=== PATIENT | female | born 1945 | race Hispanic/Latino ===

== ENCOUNTER 2020-11-04 00:44 | Inpatient (IN) | payer MEDICARE ==
[2020-11-04] MEDS ORDERED: cefTRIAXone/NS 1 GM/50 ML 1 GM/50 ML BAG IV ONE (00:58)
[2020-11-04] MEDS ORDERED: AZITHROMYCIN/NS 500 MG/250 ML 500 MG/250 ML BAG IV ONE (00:58)
[2020-11-04] MEDS ORDERED: dexAMETHasone 20 MG/5 ML VIAL IV ONE (00:58)
[2020-11-04] MEDS ORDERED: SODIUM CHLORIDE 0.9% 1000 ML IV SOLN IV ONE (01:05)
--- NOTE | 2020-11-04 01:11 | Emergency Department Report ---
ED Syncope HPI - General Chief Complaint: Syncope Stated Complaint: AMS Time Seen by Provider: 11/04/20 00:50 Source: patient, family Exam Limitations: no limitations - History of Present Illness Initial Comments: Chief complaint: HPI: This is a 75-year-old female with history of hypertension, coronary disease, hyperlipidemia, hypothyroidism, ventricular tachycardia carotid artery stenosis who presents with lethargy decreased level of consciousness. Patient was found lethargic barely responsive by EMS. Blood pressure was 70/36. Patient received 600 mL normal saline in route. I spoke to patient's upon his arrival to emergency department. Over the last few days she has been weak and fatigued. Patient gives similar history. Today she needed assistance going to the bathroom because she was so weak. Every time he would lift her she was slumped down. EMS also noted that she would become less responsive upon standing. Patient states that she has had headache fever chills shortness of breath cough nausea over the last several days. Several friends were recently diagnosed with COVID-19 infection. She was in contact close contact with these friends. She is not vaccinated against COVID-19. She was evaluated at [facility] (formerly [facility]) today. She has had decreased appetite. She took her blood pressure medication today. Timing/Prior Episodes: multiple episodes today Precipitating Factors: Positive: other (Standing, has had fatigue) Loss of Consciousness: brief (seconds) Current Symptoms: other (Generally weak) - Related Data Allergies/Adverse Reactions: Allergies codeine Allergy (Verified 03/30/13 11:21) Hives Home Medications: Ambulatory Orders Aspirin [Aspirin BABY CHEW TAB] 81 mg PO DAILY 03/30/13 Clopidogrel [Plavix] 75 mg PO QDAY 03/30/13 Famotidine [Pepcid] 10 mg PO BID PRN 03/30/13 Levothyroxine [Synthroid] 100 mcg PO QAM 03/30/13 Metoprolol [Lopressor TAB] 50 mg PO BID 03/30/13 Rosuvastatin (Nf) [Crestor] 5 mg PO QHS 03/30/13 ED Review of Systems ROS: Stated complaint: AMS Other details as noted in HPI Comment: All other systems reviewed and negative Constitutional: chills, fever, malaise Respiratory: cough, shortness of breath Cardiovascular: denies: chest pain Gastrointestinal: nausea. denies: abdominal pain Musculoskeletal: myalgia Neurological: headache ED Past Medical Hx - Past Medical History Previous Medical History?: Yes Hx Hypertension: Yes (2003) Hx Heart Attack/AMI: Yes Hx Seizures: Yes (as a child) Hx Asthma: Yes Additional medical history: Carotid artery stenosis - Surgical History Past Surgical History?: Yes Hx Coronary Stent: Yes Additional Surgical History: C section x 3. hysterectomy. ganglion cyst. Coronary artery stents. Carotid endarterectomy bilaterally - Social History Smoking Status: Never Smoker (Smoked 40 years ago remotely) Substance Use Type: None - Medications Home Medications: Home Medications Medication Instructions Recorded Confirmed Last Taken Type Aspirin [Aspirin BABY CHEW TAB] 81 mg PO DAILY 03/30/13 03/30/13 03/29/13 History Clopidogrel [Plavix] 75 mg PO QDAY 03/30/13 03/30/13 03/29/13 History Famotidine [Pepcid] 10 mg PO BID PRN 03/30/13 03/30/13 Unknown History Levothyroxine [Synthroid] 100 mcg PO QAM 03/30/13 03/30/13 03/29/13 History Metoprolol [Lopressor TAB] 50 mg PO BID 03/30/13 03/30/13 Unknown History Rosuvastatin (Nf) [Crestor] 5 mg PO QHS 03/30/13 03/30/13 03/29/13 History ED Physical Exam - General Limitations: No Limitations General appearance: alert, lethargic, other (Appears pale frail GCS 15) - Head Head exam: Present: atraumatic, normocephalic - Eye Eye exam: Present: normal appearance - ENT ENT exam: Present: mucous membranes dry - Neck Neck exam: Present: normal inspection, full ROM. Absent: tenderness, meningismus - Respiratory Respiratory exam: Present: normal lung sounds bilaterally. Absent: respiratory distress, wheezes, rales, rhonchi - Cardiovascular Cardiovascular Exam: Present: regular rate, normal rhythm, normal heart sounds. Absent: systolic murmur, diastolic murmur, rubs, gallop - GI/Abdominal GI/Abdominal exam: Present: soft, normal bowel sounds. Absent: distended, tenderness, guarding, rebound - Extremities Exam Extremities exam: Present: normal inspection - Neurological Exam Neurological exam: Present: alert, oriented X3 - Psychiatric Psychiatric exam: Present: normal affect, normal mood - Skin Skin exam: Present: warm, dry, intact, pallor ED Course Vital Signs 11/04/20 11/04/20 11/04/20 01:00 01:05 01:46 Temperature 98.6 F Pulse Rate 65 57 L Respiratory 14 14 21 Rate Blood Pressure 82/35 Blood Pressure 104/37 [Right] O2 Sat by Pulse 98 98 97 Oximetry 11/04/20 11/04/20 11/04/20 02:00 02:16 02:30 Temperature Pulse Rate 62 56 L 57 L Respiratory 25 H 22 20 Rate Blood Pressure 90/41 90/41 94/41 Blood Pressure [Right] O2 Sat by Pulse 100 100 100 Oximetry 11/04/20 11/04/20 11/04/20 02:46 03:16 03:30 Temperature Pulse Rate 57 L 67 72 Respiratory 24 29 H 19 Rate Blood Pressure 94/41 103/43 103/43 Blood Pressure [Right] O2 Sat by Pulse 100 100 100 Oximetry 11/04/20 04:16 Temperature Pulse Rate 66 Respiratory 25 H Rate Blood Pressure 61/38 Blood Pressure [Right] O2 Sat by Pulse 100 Oximetry - Reevaluation(s) Reevaluation #1: 11/04/20 04:16 Repeat blood pressure 101/50 ED Medical Decision Making - Lab Data Result diagrams: 11/04/20 01:17 11/04/20 01:17 Laboratory Results - last 24 hr 11/04/20 11/04/20 11/04/20 01:17 01:17 01:17 WBC 3.8 L RBC 4.08 Hgb 11.7 Hct 36.1 MCV 88 MCH 29 MCHC 33 RDW 15.9 H Plt Count 191 Lymph % (Auto) 20.5 [place] % (Auto) 8.7 H Eos % (Auto) 0.5 Baso % (Auto) 0.6 Lymph # (Auto) 0.8 L [place] # (Auto) 0.3 Eos # (Auto) 0.0 Baso # (Auto) 0.0 Seg Neutrophils % 69.7 Seg Neutrophils # 2.6 D-Dimer Sodium 138 Potassium 4.1 Chloride 102.9 Carbon Dioxide 27 Anion Gap 12 BUN 13 Creatinine 1.0 Estimated GFR 54 BUN/Creatinine Ratio 13 Glucose 133 H Lactic Acid 1.40 Calcium 8.2 L Ferritin Total Bilirubin 0.20 AST 32 ALT 20 Alkaline Phosphatase 68 Lactate Dehydrogenase 164 Troponin T < 0.010 C-Reactive Protein 0.50 Total Protein 6.1 L Albumin 3.5 L Albumin/Globulin Ratio 1.3 11/04/20 11/04/20 01:17 01:17 WBC RBC Hgb Hct MCV MCH MCHC RDW Plt Count Lymph % (Auto) [place] % (Auto) Eos % (Auto) Baso % (Auto) Lymph # (Auto) [place] # (Auto) Eos # (Auto) Baso # (Auto) Seg Neutrophils % Seg Neutrophils # D-Dimer 260.08 H Sodium Potassium Chloride Carbon Dioxide Anion Gap BUN Creatinine Estimated GFR BUN/Creatinine Ratio Glucose Lactic Acid Calcium Ferritin 76.2 Total Bilirubin AST ALT Alkaline Phosphatase Lactate Dehydrogenase Troponin T C-Reactive Protein Total Protein Albumin Albumin/Globulin Ratio - EKG Data -: EKG Interpreted by Me EKG shows normal: sinus rhythm, axis, QRS complexes Rate: normal - EKG Data Interpretation: nonspecific ST-T wave micheal 11/04/20 02:05 EKG obtained 0156 EKG interpreted by me Rate 60 bpm normal axis normal intervals poor R wave progression anterior leads diffuse T wave flattening - Radiology Data Radiology results: report reviewed Patient Name: ANTON MCKEON Gender: Female Date of : 1945 Referring Provider: STACIE BARRON Organization: [facility] Accession Number: [id number] Requested Date: November 04, 2020 00:57 Report Status: Final Requested Procedure: 1 Procedure Description: XR chest 1V ap Modality: XR Findings Reporting MD: Ranjeet Hardy Dictation Time: November 04, 2020 00:19 Pack Out Operator: Not available In Service Educator Date: CHEST 1 VIEW 11/04/2020 12:54 AM INDICATION / CLINICAL INFORMATION: hypotension cough. COMPARISON: None available. FINDINGS: SUPPORT DEVICES: None. HEART / MEDIASTINUM: Mild cardiomegaly LUNGS / PLEURA: Mild increased interstitial prominence appear bronchial cuffing No pneumothorax. Signer Name: Ranjeet Hardy MD Signed: 11/04/2020 12:19 AM Workstation Name: [id number] Patient Name: ANTON MCKEON Gender: Female Date of : 1945 Referring Provider: STACIE BARRON Organization: [facility] Accession Number: [id number] Requested Date: November 04, 2020 03:43 Report Status: Final Requested Procedure: 1 Procedure Description: CT angio chest Modality: CT Findings Reporting MD: Ranjeet Hardy Dictation Time: November 04, 2020 02:55 Pack Out Operator: Not available In Service Educator Date: CTA CHEST WITH CONTRAST INDICATION / CLINICAL INFORMATION: Syncope suspected COVID-19. TECHNIQUE: Axial CT images were obtained through the chest after injection of IV contrast. 3 plane MIP and/or 3D reconstructions were produced. All CT scans at this location are performed using CT dose reduction for ALARA by means of automated exposure control. COMPARISON: None available. FINDINGS: The pulmonary arteries are patent without filling defect or evidence for PTE. Heart and aorta appear normal. Coronary artery disease is identified. Small hiatal hernia with thickening of the distal esophagus. The liver is enlarged with fatty infiltration. Mild hazy densities and groundglass opacities are seen in bilateral lungs. Small nodule seen within the right lung anteriorly measuring 3 to 4 mm. Few additional small nodular densities are seen in the right lung on image 43 IMPRESSION: 1. No CT evidence for pulmonary embolism. 2. Mild hazy opacities are seen in bilateral lungs with some groundglass densities. Findings could represent inflammatory change however infection/viral pneumonia could have this appearance. 3. Small pulmonary nodules within the right lung. INCIDENTAL PULMONARY NODULE RECOMMENDATION RECOMMENDATION: Solid Nodule size <6 mm -- Single or Multiple - Low Risk Patient: No routine follow-up - High Risk Patient: Optional CT at 12 months Note These recommendations do not apply to lung cancer screening, patients with immunosuppression, or patients with known primary cancer. - Medical Decision Making 1. Suspected COVID-19: Patient had symptoms stereotypical for coronavirus infection. Chest radiograph and CT of the chest both reveal findings of atypical pneumonia. Patient received IV dexamethasone, IV ceftriaxone and IV azithromycin. 2. Orthostatic hypotension, syncope: Suspect dehydration while on antihypertensive therapy. Hypotension resolved with IV fluid bolus, Pulmonary embolism ruled out no indication of arrhythmia or ACS at this time 3. Incidental lung nodule finding on CT: Will need outpatient follow-up for lung cancer screening I spoke with [facility] physician Dr. Conti who approved admission to this hospital. Patient is admitted to hospital service with remote telemetry. Critical Care Time: Yes Critical care time in (mins) excluding proc time.: 40 Critical care attestation.: If time is entered above; I have spent that time in minutes in the direct care of this critically ill patient, excluding procedure time. 40 minutes of critical care time excluding procedures were used in the care of the patient. After listening to EMS report, nurse seam steamer informs me that patient would arrive with likely unstable vitals hypotension. I came immediately to the bedside upon patient's arrival. I obtained history from EMS at the bedside. I discussed treatment plan with the nursing team members. I spoke with per phone and in person. I reviewed electronic record. I kept the family members informed. Patient required multiple interventions and reassessments. ED Disposition Clinical Impression: Suspected COVID-19 virus infection, Multifocal pneumonia, Orthostatic hypotension, Dehydration, Syncope due to orthostatic hypotension Disposition: ADMITTED INPATIENT Is pt being admited?: Yes Does the pt Need Aspirin: No Condition: Fair Instructions: Bacterial Pneumonia (ED), Syncope (ED) Referrals: [facility] [Other] - 3-5 Days
--- NOTE | 2020-11-04 01:23 | XRay Report ---
CHEST 1 VIEW 11/04/2020 12:54 AM INDICATION / CLINICAL INFORMATION: hypotension cough. COMPARISON: None available. FINDINGS: SUPPORT DEVICES: None. HEART / MEDIASTINUM: Mild cardiomegaly LUNGS / PLEURA: Mild increased interstitial prominence appear bronchial cuffing No pneumothorax. Signer Name: Ranjeet Hardy MD Signed: 11/04/2020 1:19 AM Workstation Name: [id number]
[2020-11-04] MEDS ORDERED: ONDANSETRON 4 MG/2 ML INJ ONE (01:25)
[2020-11-04] MEDS ORDERED: ONDANSETRON 4 MG/2 ML INJ IV ONE (01:26)
[2020-11-04 01:46] LABS: Basophils % (Auto) 0.6 % (0.0-1.8); Eosinophils % (Auto) 0.5 % (0.0-4.3); Hematocrit 36.1 % (30.3-42.9); Hemoglobin 11.7 gm/dl (10.1-14.3); Lymphocytes # (Auto) 0.8 K/mm3 (1.2-5.4); Lymphocytes % (Auto) 20.5 % (13.4-35.0); Mean Corpuscular HGB Conc 33 % (30-34); Mean Corpuscular Volume 88 fl (79-97); Monocytes # (Auto) 0.3 K/mm3 (0.0-0.8); Monocytes % (Auto) 8.7 % (0.0-7.3); Platelet Count 191 K/mm3 (140-440); Red Blood Count 4.08 M/mm3 (3.65-5.03); Red Cell Distribution Width 15.9 % (13.2-15.2)
[2020-11-04 01:56] LABS: Alanine Aminotransferase 20 units/L (7-56); Albumin 3.5 g/dL (3.9-5); BUN/Creatinine Ratio 13; Blood Urea Nitrogen 13 mg/dL (7-17); Calcium 8.2 mg/dL (8.4-10.2); Hemolysis Index 3
--- NOTE | 2020-11-04 04:00 | Cat Scan Report ---
CTA CHEST WITH CONTRAST INDICATION / CLINICAL INFORMATION: Syncope suspected COVID-19. TECHNIQUE: Axial CT images were obtained through the chest after injection of IV contrast. 3 plane WI P and/or 3D reconstructions were produced. All CT scans at this location are performed using CT dose reduction for ALARA by means of automated exposure control. COMPARISON: None available. FINDINGS: The pulmonary arteries are patent without filling defect or evidence for PTE. Heart and aorta appear normal. Coronary artery disease is identified. Small hiatal hernia with thickening of the distal esop hagus. The liver is enlarged with fatty infiltration. Mild hazy densities and groundglass opacities are seen in bilateral lungs. Small nodule seen within t he right lung anteriorly measuring 3 to 4 mm. Few additional small nodular densities are seen in the right lung on image 43 IMPRESSION: 1. No CT evidence for pulmonary embolism. 2. Mild hazy opacities are seen in bilateral lungs with some groundglass densities. Findings could re present inflammatory change however infection/viral pneumonia could have this appearance. 3. Small pulmonary nodules within the right lung. INCIDENTAL PULMONARY NODULE RECOMMENDATION RECOMMENDATION: Solid Nodule size <6 mm -- Single or Multiple - Low Risk Patient: No routine follow-up - High Risk Patient: Optional CT at 12 months Note These recommendations do not apply to lung cancer screening, patients with immunosuppression, o r patients with known primary cancer. Note Newly detected indeterminate nodule in persons 35 years of age or older. Persons under the age of 35 should not receive follow-up unless there is a known primary cancer. Note Perifissural Nodule is a fissure-attached/subpleural, homogeneous, solid nodule that has smooth margins and an oval, lentiform, or triangular shape. They represent about 20% of nodules detected in lung cancer screening, are invariably benign, and do not require follow-up. Nodules 10 mm or larger (or those with suspicious features) will continue to be managed based on the size criteria. Low Risk Patient = minimal or absent history of smoking and of other known risk factors. High Risk Patient = history of smoking or of other known risk factors. Nodule dimensions are average of long and short axes, rounded to the nearest millimeter. Based on 2017 Fleischner Society Guidelines found in Radiology 2017 284:228-243. https://doi.org/10.1148/radiol.9112669930 https://www.ncbi.nlm.nih.gov/pmc/articles/QLX8548240/ Signer Name: Ranjeet Hardy MD Signed: 11/04/2020 3:55 AM Workstation Name: [id number]
[2020-11-04] MEDS ORDERED: MORPHINE 4 MG/1 ML INJ IV PRN (05:43)
[2020-11-04] MEDS ORDERED: MAGNESIUM HYDROXIDE (MOM) ORAL LIQD UDC PO PRN (05:43)
[2020-11-04] MEDS ORDERED: ACETAMINOPHEN 325 MG TAB PO PRN (05:43)
[2020-11-04] MEDS ORDERED: MORPHINE 2 MG/1 ML INJ IV PRN (05:43)
[2020-11-04] MEDS ORDERED: ONDANSETRON 4 MG/2 ML INJ IV PRN (05:43)
[2020-11-04] MEDS ORDERED: SODIUM CHLORIDE 0.9% 1000 ML 1,000 ML IV SCH (05:45)
--- NOTE | 2020-11-04 06:00 | History and Physical Report ---
History of Present Illness Date of examination: 11/04/20 Date of admission: 11/04/2020 Chief complaint: Syncope History of present illness: 75-year-old female with known history of hypertension, coronary artery disease, hyperlipidemia, hypothyroidism and history of ventricular tachycardia brought into the emergency room today via EMS for decreased level of responsiveness. Blood pressure upon initial evaluation by EMS was 77 this systolic in the 40s in the diastolic. Patient was given some IV fluid with significant improvement in blood pressure. Patient has been feeling weak and fatigued over the past few weeks and has been needing help ambulating and doing her ADLs. Patient states that she has had headache, fever and chills, nausea, loss of appetite, abdominal pain and shortness of breath over the past few days. She denies any recent travel however she has been in contact with a friend who was diagnosed with COVID-19. Patient has not had COVID-19 vaccination. Work-up in the emergency room today, CT angiogram of the chest reveals:1. No CT evidence for pulmonary embolism. 2. Mild hazy opacities are seen in bilateral lungs with some groundglass densities. Findings could represent inflammatory change however infection/viral pneumonia could have this appearance. 3. Small pulmonary nodules within the right lung. INCIDENTAL PULMONARY NODULE RECOMMENDATION Past History Past Medical History: acute CA, hypertension, seizures (In childhood), other (Asthma, carotid artery stenoses) Past Surgical History: , hysterectomy, PTCA, Other (Ganglion cyst removal, carotid endarterectomy) Social history: no significant social history Family history: no significant family history Medications and Allergies Allergies Allergy/AdvReac Type Severity Reaction Status Date / Time codeine Allergy Hives Verified 03/30/13 11:21 Home Medications Medication Instructions Recorded Confirmed Last Taken Type Aspirin [Aspirin BABY CHEW TAB] 81 mg PO DAILY 03/30/13 03/30/13 03/29/13 History Clopidogrel [Plavix] 75 mg PO QDAY 03/30/13 03/30/13 03/29/13 History Famotidine [Pepcid] 10 mg PO BID PRN 03/30/13 03/30/13 Unknown History Levothyroxine [Synthroid] 100 mcg PO QAM 03/30/13 03/30/13 03/29/13 History Metoprolol [Lopressor TAB] 50 mg PO BID 02/07/14 02/07/14 Unknown History Rosuvastatin (Nf) [Crestor] 5 mg PO QHS 03/30/13 03/30/13 03/29/13 History Active Meds: Active Medications Acetaminophen (Acetaminophen 325 Mg Tab) 650 mg PO Q4H PRN PRN Reason: Pain MILD(1-3)/Fever >100.5/MILNER Sodium Chloride (Nacl 0.9% 1000 Ml) 1,000 mls @ 75 mls/hr IV DIRECT MARTA Ceftriaxone Sodium (Rocephin/Ns 2 Gm/100 Ml) 2 gm in 100 mls @ 200 mls/hr IV Q24H MARTA; Protocol Azithromycin (Zithromax/Ns) 500 mg in 250 mls @ 250 mls/hr IV Q24H MARTA; Protocol Magnesium Hydroxide (Magnesium Hydroxide (Mom) Oral Liqd Udc) 30 ml PO Q4H PRN PRN Reason: Constipation Morphine Sulfate (Morphine 2 Mg/1 Ml Inj) 2 mg IV Q4H PRN PRN Reason: Pain, Moderate (4-6) Morphine Sulfate (Morphine 4 Mg/1 Ml Inj) 4 mg IV Q4H PRN PRN Reason: Pain , Severe (7-10) Ondansetron HCl (Ondansetron 4 Mg/2 Ml Inj) 4 mg IV Q8H PRN PRN Reason: Nausea And Vomiting Sodium Chloride (Sodium Chloride 0.9% 10 Ml Flush Syringe) 10 ml IV BID MARTA Sodium Chloride (Sodium Chloride 0.9% 10 Ml Flush Syringe) 10 ml IV PRN PRN PRN Reason: LINE FLUSH Review of Systems Constitutional: fever, chills, fatigue, weakness Ears, nose, mouth and throat: no nasal congestion, no sore throat Cardiovascular: no chest pain, no palpitations Respiratory: no cough, no shortness of breath Genitourinary Female: no flank pain, no dysuria, no hematuria Musculoskeletal: no neck pain, no low back pain Integumentary: no rash, no pruritis Neurological: confusion, no headaches Psychiatric: no anxiety, no depression Endocrine: no polydipsia, no polyuria, no nocturia Exam - Constitutional Vitals: Temp Pulse Resp BP Pulse Ox 98.6 F 66 25 H 61/38 100 11/04/20 01:00 11/04/20 04:16 11/04/20 04:16 11/04/20 04:16 11/04/20 04:16 General appearance: Present: no acute distress, well-nourished - EENT Eyes: Present: PERRL, EOM intact. Absent: scleral icterus ENT: hearing intact, clear oral mucosa, dentition normal - Neck Neck: Present: supple, normal ROM - Respiratory Respiratory effort: normal Respiratory: bilateral: diminished - Cardiovascular Rhythm: regular Heart Sounds: Present: S1 & S2. Absent: gallop, systolic murmur, diastolic murmur, rub, click - Extremities Extremities: no ischemia, pulses intact, pulses symmetrical, No edema, normal temperature, normal color, Full ROM Peripheral Pulses: within normal limits - Abdominal General gastrointestinal: Present: soft, non-tender, non-distended, normal bowel sounds. Absent: mass - Integumentary Integumentary: Present: clear, warm, dry - Musculoskeletal Musculoskeletal: strength equal bilaterally - Psychiatric Psychiatric: appropriate mood/affect, intact judgment & insight, memory intact, cooperative - Neurologic Neurologic: CNII-XII intact, no focal deficits, moves all extremities HEART Score - HEART Score Troponin: Troponin T < 0.010 ng/mL (0.00-0.029) 11/04/20 01:17 Results - Labs CBC & Chem 7: 11/04/20 01:17 11/04/20 01:17 Labs: Abnormal lab results 11/04/20 11/04/20 11/04/20 Range/Units 01:17 01:17 01:17 WBC 3.8 L (4.5-11.0) K/mm3 RDW 15.9 H (13.2-15.2) % [place] % (Auto) 8.7 H (0.0-7.3) % Lymph # (Auto) 0.8 L (1.2-5.4) K/mm3 D-Dimer 260.08 H (0-234) ng/mlDDU Glucose 133 H (65-100) mg/dL Calcium 8.2 L (8.4-10.2) mg/dL Total Protein 6.1 L (6.3-8.2) g/dL Albumin 3.5 L (3.9-5) g/dL Assessment and Plan - Patient Problems (1) Multifocal pneumonia Current Visit: Yes Status: Acute Plan to address problem: Patient placed on empiric IV antibiotics. We will await culture results. (2) Suspected COVID-19 virus infection Current Visit: Yes Status: Acute Plan to address problem: Patient placed on isolation precautions. Will await COVID-19 testing. Consult placed to infectious disease for evaluation. (3) Dehydration Current Visit: Yes Status: Acute Plan to address problem: Patient placed on IV fluid. We will continue to monitor chemistry. (4) Orthostatic hypotension Current Visit: Yes Status: Acute Plan to address problem: Possibly secondary to dehydration. We will monitor vital signs closely. (5) DVT prophylaxis Current Visit: Yes Status: Acute Plan to address problem: Patient placed on subcutaneous heparin. (6) Full code status Current Visit: Yes Status: Acute Plan to address problem: Patient is full code.
--- NOTE | 2020-11-04 11:11 | Consultation ---
History of Present Illness - Reason for Consult Consult date: 11/04/20 r/o COVID - History of Present Illness 75-year-old female with history of hypertension, CAD, hyperlipidemia, hypothyroidism, ventricular tachycardia, admitted on 11/04/2020 secondary to altered mental status. Patient reported being weak and fatigued for several weeks. Most recently she has been complaining of nausea, chills, poor appetite and abdominal pain associated with shortness of breath. Patient was found to have a blood pressure of 77/40 by EMS. Receive IV fluids. Patient has been exposed to a friend who was diagnosed positive for COVID-19. Patient in no receive COVID-19 vaccination. On arrival, temperature 98.6, HR 65, RR 14, O2 sat 98, BP 104/37. Initial WBC 3.9. CRP 0.5. D-dimer 260. Ferritin 76. Chest x- ray with mild interstitial prominence. CTA shows no PE mild hazy opacity with groundglass opacities. Review of Systems: reviewed ED and H&P notes. Review of system deferred to minimize COVID-19 transmission. Past History Past Medical History: acute PR, hypertension, seizures (In childhood), other (Asthma, carotid artery stenoses) Past Surgical History: , hysterectomy, PTCA, Other (Ganglion cyst removal, carotid endarterectomy) Social history: no significant social history Family history: no significant family history Medications and Allergies Allergies Allergy/AdvReac Type Severity Reaction Status Date / Time codeine Allergy Hives Verified 03/30/13 11:21 Home Medications Medication Instructions Recorded Confirmed Last Taken Type Aspirin [Aspirin BABY CHEW TAB] 81 mg PO DAILY 03/30/13 03/30/13 03/29/13 History Clopidogrel [Plavix] 75 mg PO QDAY 03/30/13 03/30/13 03/29/13 History Famotidine [Pepcid] 10 mg PO BID PRN 03/30/13 03/30/13 Unknown History Levothyroxine [Synthroid] 100 mcg PO QAM 03/30/13 03/30/13 03/29/13 History Metoprolol [Lopressor TAB] 50 mg PO BID 03/30/13 03/30/13 Unknown History Rosuvastatin (Nf) [Crestor] 5 mg PO QHS 02/07/14 02/07/14 02/06/14 History Active Meds: Active Medications Acetaminophen (Acetaminophen 325 Mg Tab) 650 mg PO Q4H PRN PRN Reason: Pain MILD(1-3)/Fever >100.5/MILNER Heparin Sodium (Porcine) (Heparin 5,000 Unit/1 Ml Vial) 5,000 unit SUB-Q Q8HR MARTA Sodium Chloride (Nacl 0.9% 1000 Ml) 1,000 mls @ 125 mls/hr IV DIRECT MARTA Ceftriaxone Sodium (Rocephin/Ns 2 Gm/100 Ml) 2 gm in 100 mls @ 200 mls/hr IV QHS MARTA; Protocol Stop: 11/07/20 22:29 Azithromycin (Zithromax/Ns) 500 mg in 250 mls @ 250 mls/hr IV QHS MARTA; Protocol Stop: 11/07/20 22:59 Magnesium Hydroxide (Magnesium Hydroxide (Mom) Oral Liqd Udc) 30 ml PO Q4H PRN PRN Reason: Constipation Ondansetron HCl (Ondansetron 4 Mg/2 Ml Inj) 4 mg IV Q8H PRN PRN Reason: Nausea And Vomiting Sodium Chloride (Sodium Chloride 0.9% 10 Ml Flush Syringe) 10 ml IV BID MARTA Sodium Chloride (Sodium Chloride 0.9% 10 Ml Flush Syringe) 10 ml IV PRN PRN PRN Reason: LINE FLUSH Physical Examination - Physical Exam Narrative exam: Physical exam deferred to minimize COVID-19 transmission during pandemic. - Constitutional Vitals: Vital Signs Temp Pulse Resp BP Pulse Ox 98.8 F 81 27 H 114/49 98 11/04/20 07:46 11/04/20 08:30 11/04/20 08:30 11/04/20 08:30 11/04/20 08:30 Temperature -Last 24 Hours Temperature 98.8 F Temperature 98.6 F Results - Labs CBC & Chem 7: 11/04/20 01:17 11/04/20 01:17 Labs: Abnormal lab results 11/04/20 11/04/20 11/04/20 Range/Units 01:17 01:17 01:17 WBC 3.8 L (4.5-11.0) K/mm3 RDW 15.9 H (13.2-15.2) % [place] % (Auto) 8.7 H (0.0-7.3) % Lymph # (Auto) 0.8 L (1.2-5.4) K/mm3 D-Dimer 260.08 H (0-234) ng/mlDDU Glucose 133 H (65-100) mg/dL Calcium 8.2 L (8.4-10.2) mg/dL Total Protein 6.1 L (6.3-8.2) g/dL Albumin 3.5 L (3.9-5) g/dL Assessment and Plan Cultures: SARS CoV2 PCR pending Assessment: 5-year-old female with history of hypertension, CAD, hyperlipidemia, hypothyroidism, ventricular tachycardia, admitted on 11/04/2020 secondary to altered mental status and few days of SOB: #Acute encephalopathy: Secondary to pneumonia. #Bilateral pneumonia: CT with mild hazy opacities.. Infllammatory markers not elevated. ?CAP vs early COVID. Patient is not hypoxic. Recommendations: -Follow-up SARS-CoV-2 PCR, patient is refusing -Continue ceftriaxone and azithromycin for now -Check procalcitonin -No indication for dexamethasone or remdesivir at this time, patient is not hypoxic All laboratory, cultures and imaging were reviewed. Discussed with attending. Will follow Gloria Gray MD Infectious Diseases Conditioner [employer]ender [facility] ([facility]) M [phone] O [phone]
[2020-11-04] MEDS ORDERED: REMDESIVIR 200 MG in SODIUM CHLORIDE 0.9% 250ML 250 ML IV ONE (12:34)
--- NOTE | 2020-11-04 12:41 | Event Note ---
Date: 11/04/20 Patient tested positive for COVID-19 at [facility] Patient currently on 2 L nasal cannula O2 Cont covid protocol, started on empiric steroid, remdesivir We will consult ID, follow inflammatory markers Patient appears anxious, tachycardic, no respiratory distress Called patient few times but unable to reach out -I left a voice message Continue current management and plan and supportive care -It took me about 28 minutes to reevaluate and reasses this patient, discussed with RN/CM, review medical documents, lab results, imaging, medication list and placing order.
[2020-11-04] MEDS: ASPIRIN 81 MG TAB CHEW PO SCH (14:00)
[2020-11-04] MEDS ORDERED: CLOPIDOGREL 75 MG TAB PO SCH (14:00)
[2020-11-04] MEDS: HEPARIN 5,000 UNIT/1 ML VIAL SUB-Q SCH ×2 (14:01→22:36)
[2020-11-04] MEDS ORDERED: METOPROLOL TARTRATE 5 MG/5 ML INJ IV PRN (15:00)
[2020-11-04] MEDS ORDERED: SODIUM CHLORIDE 0.9% 50 ML IVPB IV SCH (21:00)
[2020-11-04] MEDS ORDERED: METOPROLOL TARTRATE 50 MG TAB PO SCH (22:00)
[2020-11-04] MEDS ORDERED: AZITHROMYCIN/NS 500 MG/250 ML 500 MG/250 ML BAG IV SCH (22:00)
[2020-11-04] MEDS ORDERED: cefTRIAXone/NS 2 GM/100 ML 2 GM/100 ML BAG IV SCH (22:00)
[2020-11-04] MEDS ORDERED: NON-FORMULARY EACH (Rosuvastatin (Nf) 5 MG Tablet) PO SCH (22:00)
[2020-11-04] MEDS: METOPROLOL TARTRATE 50 MG TAB PO SCH (22:35)
[2020-11-04] MEDS: FAMOTIDINE 10 MG TAB PO SCH (22:35)
[2020-11-05 01:26] LABS: Alanine Aminotransferase 22 units/L (7-56); Albumin 3.6 g/dL (3.9-5); Blood Urea Nitrogen 11 mg/dL (7-17); Calcium 8.7 mg/dL (8.4-10.2); Hemolysis Index 3
[2020-11-05 01:35] LABS: BUN/Creatinine Ratio 18
[2020-11-05 04:29] LABS: Bilirubin,Urine NEG (Negative); Blood,Urine NEG (Negative); Color,Urine Yellow (Yellow); Mucus,Urine 3+ /HPF; Urobilinogen,Urine < 2.0 mg/dL (<2.0)
[2020-11-05 05:13] LABS: Basophils % (Auto) 0.2 % (0.0-1.8); Eosinophils % (Auto) 0.1 % (0.0-4.3); Hematocrit 37.3 % (30.3-42.9); Hemoglobin 12.3 gm/dl (10.1-14.3); Lymphocytes % (Auto) 21.4 % (13.4-35.0); Mean Corpuscular HGB Conc 33 % (30-34); Mean Corpuscular Volume 87 fl (79-97); Monocytes # (Auto) 0.5 K/mm3 (0.0-0.8); Monocytes % (Auto) 9.6 % (0.0-7.3); Platelet Count 199 K/mm3 (140-440); Red Blood Count 4.29 M/mm3 (3.65-5.03); Red Cell Distribution Width 15.4 % (13.2-15.2)
[2020-11-05 05:20] LABS: INR 0.91 (0.87-1.13)
[2020-11-05 05:32] LABS: Alanine Aminotransferase 21 units/L (7-56); Albumin 3.5 g/dL (3.9-5); BUN/Creatinine Ratio 18; Blood Urea Nitrogen 11 mg/dL (7-17); Calcium 8.6 mg/dL (8.4-10.2); Hemolysis Index 12
[2020-11-05] MEDS ORDERED: LEVOTHYROXINE 100 MCG TAB PO SCH (06:00)
[2020-11-05] MEDS: HEPARIN 5,000 UNIT/1 ML VIAL SUB-Q SCH ×2 (06:47→15:10)
[2020-11-05] MEDS ORDERED: DEXAMETHASONE 2 MG TAB PO SCH (10:00)
--- NOTE | 2020-11-05 10:07 | Electrocardiograph Report ---
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
--- NOTE | 2020-11-05 10:14 | Electrocardiograph Report ---
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
[2020-11-05] MEDS: FAMOTIDINE 10 MG TAB PO SCH (10:23)
[2020-11-05] MEDS: METOPROLOL TARTRATE 50 MG TAB PO SCH (10:23)
[2020-11-05] MEDS: ASPIRIN 81 MG TAB CHEW PO SCH (10:23)
[2020-11-05 12:34] VITALS: BP 154/80
[2020-11-05] MEDS ORDERED: NON-FORMULARY EACH (Cholecalciferol (Vitamin D3) [Vitamin D3 2,000 Unit Cap] 2,000 UNIT Ca PO SCH (13:00)
[2020-11-05] MEDS ORDERED: LISINOPRIL 5 MG TAB PO SCH (13:00)
[2020-11-05] MEDS ORDERED: CHOLECALCIFEROL (VIT D3) 1000 UNIT (25 mcg) TAB PO SCH (13:00)
[2020-11-05] MEDS ORDERED: GABAPENTIN 300 MG CAP PO SCH (13:00)
[2020-11-05] MEDS ORDERED: NON-FORMULARY EACH (Ascorbic Acid [Vitamin C] 1,000 MG Tablet) PO SCH (13:00)
[2020-11-05] MEDS ORDERED: ASCORBIC ACID 500 MG TAB PO SCH (13:00)
[2020-11-05] MEDS ORDERED: NON-FORMULARY EACH (Gabapentin [Neurontin] 600 MG Tablet) PO SCH (13:00)
--- NOTE | 2020-11-05 14:07 | Progress Note ---
Assessment and Plan Cultures: SARS CoV2 PCR positive Assessment: 75-year-old female with history of hypertension, CAD, hyperlipidemia, hypothyroidism, ventricular tachycardia, admitted on 11/04/2020 secondary to altered mental status and few days of SOB: #Acute encephalopathy: Secondary to pneumonia. #COVID-19 pneumonia: CT with mild hazy opacities.. Infllammatory markers not elevated. COVID. Patient is not hypoxic. Recommendations: -Continue ceftriaxone and azithromycin for now -Stop antibiotics, procalcitonin is low -No indication for dexamethasone or remdesivir at this time, patient is not hypoxic -O2 sat upon ambulation 96%, okay to discharge home from the standpoint We will sign off Gloria Gray MD Infectious Diseases Electronics System Mechanic [facility] ([facility]) M [phone] O [phone] Subjective Date of service: 11/05/20 Interval history: Patient currently on room air. No fever. Objective - Exam Narrative Exam: Physical exam deferred to minimize COVID-19 transmission during pandemic. - Constitutional Vitals: Vital Signs Temp Pulse Resp BP Pulse Ox 97.5 F L 83 18 154/80 98 11/05/20 10:43 11/05/20 10:43 11/05/20 10:43 11/05/20 10:43 11/05/20 10:43 Temperature -Last 24 Hours Temperature 97.5 F Temperature 98.0 F Temperature 98.5 F - Labs CBC & Chem 7: 11/05/20 04:02 11/05/20 04:02 Labs: Abnormal lab results 11/04/20 11/05/20 11/05/20 Range/Units 10:48 00:52 04:02 RDW 15.4 H (13.2-15.2) % [place] % (Auto) 9.6 H (0.0-7.3) % Lymph # (Auto) 1.0 L (1.2-5.4) K/mm3 Glucose 129 H (65-100) mg/dL Albumin 3.6 L (3.9-5) g/dL Coronavirus (PCR) Positive A (Negative) 11/05/20 Range/Units 04:02 RDW (13.2-15.2) % [place] % (Auto) (0.0-7.3) % Lymph # (Auto) (1.2-5.4) K/mm3 Glucose 114 H (65-100) mg/dL Albumin 3.5 L (3.9-5) g/dL Coronavirus (PCR) (Negative)
--- NOTE | 2020-11-05 14:48 | Discharge Summary ---
Providers - Providers Date of Admission: 11/04/20 11:28 Date of discharge: 11/05/20 Attending physician: YEISON GTZ 11/04/20 05:43 Consult to Physician [CONS] Routine Comment: Consulting Provider: LULÚ GILLIS Physician Instructions: Reason For Exam: PNEUMONIA,PUI Hospitalization Condition: Fair Hospital course: 75-year-old female with history of hypertension, CAD, hyperlipidemia, hypothyroidism, ventricular tachycardia, admitted on 11/04/2020 secondary to altered mental status. Patient reported being weak and fatigued for several weeks. Most recently she has been complaining of nausea, chills, poor appetite and abdominal pain associated with shortness of breath. Patient was found to have a blood pressure of 77/40 by EMS. Receive IV fluids. Patient has been exposed to a friend who was diagnosed positive for COVID-19. Patient in no receive COVID-19 vaccination. On arrival, temperature 98.6, HR 65, RR 14, O2 sat 98, BP 104/37. Initial WBC 3.9. CRP 0.5. D-dimer 260. Ferritin 76. Chest x-ray with mild interstitial prominence. CTA shows no PE mild hazy opacity with groundglass opacities. Disposition: 01 HOME / SELF CARE / HOMELESS Final Discharge Diagnosis (Prints w/discharge instructions): --Acute encephalopathy, resolved secondary to pneumonia. --Bilateral pneumonia due to COVID-19. --hypoxemia, resolved. --Coronary artery disease. --Hypertension. --Hypothyroidism. --Sinus tachycardia Time spent for discharge: 34 minutes Core Measure Documentation - Palliative Care Palliative Care/ Comfort Measures: Not Applicable - Core Measures Any of the following diagnoses?: none Exam - Physical Exam Narrative exam: Limited physical exam due to COVID-19 pandemic to minimize transmission of the disease and to preserve PPE. Vital reviewed and stable. GENERAL: well-developed well-nourished elderly white female lying on bed appeared to be in no discomfort. HEENT: Normocephalic. Atraumatic. NECK: Supple. CHEST/LUNGS: breathing nonlabored. HEART/CARDIOVASCULAR: Heart rate stable on telemetry ABDOMEN: Visibly not distended SKIN: There is no rash NEURO: No focal motor deficit. Follows command. MUSCULOSKELETAL: No joint effusion EXTRIMITY: No swelling, no cyanosis or clubbing. PSYCH: Cooperative. - Constitutional Vitals: Temp Pulse Resp BP Pulse Ox 97.5 F L 83 18 154/80 98 11/05/20 10:43 11/05/20 10:43 11/05/20 10:43 11/05/20 10:43 11/05/20 10:43 Plan Activity: advance as tolerated Weight Bearing Status: Non-Weight Bearing Diet: low fat, low salt Additional Instructions: Upon discharge patient should self-quarantine at home up to 10 days from the onset of symptoms per CDC guideline. Patients should return to hospital regardless if they have worsening fevers or respiratory status. Follow up with: [facility] [Other] - 3-5 Days
[2020-11-05] MEDS ORDERED: REMDESIVIR 100 MG in SODIUM CHLORIDE 0.9% 250ML 250 ML IV SCH (21:00)
== END 2020-11-05 17:53 | disposition home or self-care (01) | DRG 177 ==
LOC: ED 00:44 → 3A 05:04 → OBSVTOIN 11:28 → 3A 19:30
PROVIDERS: ADMIT Internal Medicine Geriatric Medicine; ATTEND Internal Medicine
DX: U07.1 COVID-19 (principal); J12.82 Pneumonia due to coronavirus disease 2019; G93.40 Encephalopathy, unspecified; I47.2 Ventricular tachycardia; E86.0 Dehydration; I10 Essential (primary) hypertension; I95.1 Orthostatic hypotension; I25.10 Atherosclerotic heart disease of native coronary artery without angina pectoris; E03.9 Hypothyroidism, unspecified; J45.909 Unspecified asthma, uncomplicated; Z90.710 Acquired absence of both cervix and uterus; I25.2 Old myocardial infarction; Z98.61 Coronary angioplasty status; Z88.5 Allergy status to narcotic agent; Z79.899 Other long term (current) drug therapy; Z79.82 Long term (current) use of aspirin
CPT/HCPCS: 36415; 71045; 71275; 80053; 81001; 82140; 82728; 83615; 84145; 84484; 85025; 85379; 85610; 86140; 93005; G0378; A9270-GY; J0456; J0696; J1100; J1644; J2405; J7030; J8540; Q9967; U0003